=== PATIENT | male | born 1985 | race Caucasian/White ===

== ENCOUNTER 2017-02-25 08:45 | Emergency (ER) | END 2017-02-25 11:40 | disposition home or self-care (01) | DX: R51 Headache (principal); R07.89 Other chest pain; R20.2 Paresthesia of skin; Z87.891 Personal history of nicotine dependence | CPT/HCPCS: 36415; 70450; 71010; 80053; 84484; 85025; 93005; 96374; J1885; J7040; Z7502 ==

== ENCOUNTER 2017-10-29 10:29 | Emergency (ER) | END 2017-10-29 11:12 | disposition home or self-care (01) ==

== ENCOUNTER 2018-09-06 21:26 | Emergency (ER) | payer OTHER ==
[~2018-09-06] VITALS: Ht 180.3 cm; Wt 122.1 kg
[~2018-09-06 21:26] MED LIST: AMOX1TAB10 PO; CIPR7.5D RIGHT EAR; IBUP-1542 PO; TRAM50TA2 PO
[2018-09-06 21:30] VITALS: Ht 180.3 cm; Wt 122.1 kg
[2018-09-06] MEDS ORDERED: KETOROLAC 30 MG INJ IV STA (22:18)
--- NOTE | 2018-09-06 22:53 | ERD ---
ER Documentation Chief Complaint Chief Complaint CHEST PAIN WITH SOB X1DAY HPI This is a 33-year-old gentleman with smoking history presents to the emergency room with 2-3 months of left-sided chest discomfort. He describes a swelling sensation in his chest wall that is worse to touch worse with rotational movement and occasionally worse with deep breathing. He denies any chest pain, no lower extremity swelling, history of DVT or pulmonary embolism. No family history of early cardiac disease. Patient denies any exertional symptoms. He has not taken any Tylenol or Motrin to help with the pain. ROS All systems reviewed and are negative except as per history of present illness. Medications Home Meds Active Scripts Ibuprofen* (Motrin*) 800 Mg Tab, 800 MG PO Q6H PRN for PAIN AND OR ELEVATED TEMP, #30 TAB Prov:VETO MONTANEZ MD 09/06/18 Ibuprofen* (Motrin*) 600 Mg Tab, 600 MG PO Q6, #30 TAB Prov:OSCAR MONCADA PA-C 10/29/17 Ciprofloxacin Hcl/Dexameth (Ciprodex Otic Suspension) 7.5 Ml Drops.susp, 4 DROP RIGHT EAR BID for 7 Days, EA Prov:OSCAR MONCADA PA-C 10/29/17 Amoxicillin/Potassium Clav (Amox-Clav 875-125 mg Tablet) 875-125 mg Tab, 1 TAB PO BID for 7 Days, #14 TAB Prov:OSCAR MONCADA PA-C 10/29/17 Ibuprofen* (Motrin*) 600 Mg Tab, 600 MG PO Q6, #20 TAB Prov:ROCHELLE HORTA PA-C 02/25/17 Tramadol HCl (Tramadol HCl) 50 Mg Tablet, 50 MG PO Q6 PRN for PAIN, #20 TAB Prov:MORALES HILLIARD MD 10/27/15 Allergies Allergies: Coded Allergies: No Known Allergy (Unverified , 02/25/17) PMhx/Soc Medical and Surgical Hx: pt denies Surgical Hx History of Surgery: No Anesthesia Reaction: No Hx Neurological Disorder: No Hx Respiratory Disorders: No Hx Cardiac Disorders: Yes (hyperlipidemia) Hx Psychiatric Problems: No Hx Miscellaneous Medical Probl: Yes (dx'd gallstones 1 year ago; no surgery) Hx Alcohol Use: No (FORMER) Hx Substance Use: No Hx Tobacco Use: Yes Smoking Status: Current every day smoker FmHx Family History: No diabetes Physical Exam Vitals Vital Signs Date Temp Pulse Resp B/P (MAP) Pulse Ox O2 O2 Flow FiO2 Time Delivery Rate 09/06/18 97.3 82 16 127/88 99 Room Air 22:04 (101) 09/06/18 97.3 89 16 129/75 97 21:30 (93) Physical Exam General: Well developed, well nourished, no acute distress Head: Normocephalic, atraumatic. Eyes: Pupils equally reactive, EOM intact ENT: Moist mucous membranes Neck: Supple, no lymphadenopathy Respiratory: Lungs clear bilaterally, no distress Cardiovascular: RRR, no murmurs, rubs, or gallops, reproducible anterior chest wall tenderness to left chest wall and left upper back and thorax Abdominal: Soft, non-tender, non-distended, no peritoneal signs : Deferred MSK: No edema, no unilateral swelling, 5/5 strength Neurologic: Alert and oriented, moving all extremities, normal speech, no focal weakness, no cerebellar signs Skin: No rash Psych: Normal mood Result Diagram: 09/06/18214409/06/182144 Results 24 hrs Laboratory Tests Test 09/06/18 21:45 White Blood Count 8.8 10^3/ul Red Blood Count 4.74 10^6/ul Hemoglobin 14.6 g/dl Hematocrit 42.7 % Mean Corpuscular Volume 90.1 fl Mean Corpuscular Hemoglobin 30.8 pg Mean Corpuscular Hemoglobin Concent 34.2 g/dl Red Cell Distribution Width 11.9 % Platelet Count 205 10^3/UL Mean Platelet Volume 9.9 fl Immature Granulocytes % 0.300 % Neutrophils % 50.4 % Lymphocytes % 40.3 % Monocytes % 5.4 % Eosinophils % 2.6 % Basophils % 1.0 % Nucleated Red Blood Cells % 0.0 /100WBC Immature Granulocytes # 0.030 10^3/ul Neutrophils # 4.4 10^3/ul Lymphocytes # 3.6 10^3/ul Monocytes # 0.5 10^3/ul Eosinophils # 0.2 10^3/ul Basophils # 0.1 10^3/ul Nucleated Red Blood Cells # 0.0 10^3/ul D-Dimer 273.94 ng/ml D-Dimer Comment Sodium Level 137 mmol/L Potassium Level 4.0 mmol/L Chloride Level 101 mmol/L Carbon Dioxide Level 28 mmol/L Anion Gap 8 Blood Urea Nitrogen 15 mg/dl Creatinine 0.84 mg/dl Est Glomerular Filtrat Rate mL/min > 60 mL/min Glucose Level 121 mg/dl Calcium Level 9.4 mg/dl Troponin I < 0.012 ng/ml Current Medications Medications Dose Sig/Vivienne Start Time Status Last (Trade) Ordered Route PRN Stop Time Admin Dose Reason Admin Ketorolac 30 mg ONCE STAT 09/06/18 DC 09/06/18 Tromethamine IV 22:18 22:28 (Toradol) 09/06/18 22:19 Procedures/MDM EKG, MONITORS, & DIAGNOSTIC IMAGING: EKG: I reviewed and interpreted a 12-lead EKG. Rhythm: Normal sinus rhythm ST Changes: No contiguous ST segment elevations T waves: Nonspecific T wave inversions in leads III and aVF Impression: Abnormal EKG Repeat EKG: EKG: I reviewed and interpreted a 12-lead EKG. Rhythm: Normal sinus rhythm ST Changes: No contiguous ST segment elevations T waves: No contiguous T wave inversions Impression: No evidence of acute cardiac ischemia Chest x-ray: I reviewed and interpreted a 2 view of the chest Mediastinum: No enlargement Cardiac silhouette: No cardiomegaly Airspace: Clear lung abreu bilaterally without evidence of pneumothorax Bones: No evidence of fracture PROCEDURES: None LAB INTERPRETATION: * Negative troponin and d-dimer MEDICAL DECISION MAKING: The patient's history, physical exam and clinical presentation is seems very consistent with muscular skeletal etiology. However, the patient has slight ab normality on EKG that is nonspecific. However, based on these EKG findings I do believe troponin and d-dimer be appropriate. The patient qualifies for wells low risk criteria. The patient other than smoking has no risk factors for cardiac disease. Given his age it is unlikely that this is cardiac in nature. The patient has had 2-3 months of symptoms. However will be reasonable to check EKG and troponin. Outpatient follow-up and stress testing might be reasonable. Based on the patient's clinical exam and history and risk factors, I have a much lower clinical concern for pulmonary embolism, acute aortic dissection, pneumothorax, pneumonia, cardiac tamponade HEART Score: Less than 3 MACE Rate: Less than 1.7% Shared Decision Making: We had a conversation regarding risk stratification, MACE rate, and the risks, benefits, alternatives of disposition planning options. Disposition planning: The patient prefers discharge which I believe is reasonable given low risk profile, chronic symptoms for 2 3 months ER COURSE: * Troponin and d-dimer negative * NSAID provided with improved symptoms * The patient's initial EKG had nonspecific T wave inversions. Repeat EKG is normalized. Insert a possible lead placement. Given the patient's low risk profile, subacute nature and very atypical presentation with reproducible symptoms outpatient follow-up is appropriate. No indication for inpatient hospitalization CONSULTATION: None DISPOSITION PLAN: The patient does not have an identifiable emergent medical condition that warrants inpatient hospitalization at this time. The patient is deemed safe for discharge with outpatient follow-up. We discussed follow up with the patient's primary care doctor within 24 to 48 hours as needed. We also discussed return to the emergency room for worsening symptoms or worsening condition. Outpatient referral: Outpatient cardiology referral as needed if symptoms persist Discharge Medications: Motrin Departure Diagnosis: Primary Impression: Chest pain Chest pain type: unspecified Qualified Codes: R07.9 - Chest pain, unspecified Condition: Stable VETO MONTANEZ MD Sep 06, 2018 22:53
[2018-09-06] MEDS ORDERED: IBUP800T48 PO (23:52)
[2018-09-07 00:05] VITALS: BP 114/72; PULSE 65; RESP 16
== END 2018-09-07 00:07 | disposition home or self-care (01) ==
LOC: E/R 21:26
DX: R07.9 Chest pain, unspecified (principal); F17.210 Nicotine dependence, cigarettes, uncomplicated
CPT/HCPCS: 71046; 80048; 84484; 85025; 85378; 93005; 96374; J1885; Z7502